=== PATIENT | male | born 1940 | race Two or more races ===

== ENCOUNTER 2017-06-05 19:00 | Emergency (ER) | payer OTHER ==
[~2017-06-05] VITALS: Ht 182.9 cm; Wt 59.0 kg
--- NOTE | 2017-06-05 19:05 | NUR ---
PT A/OX4 BREATHING EFFORTLESSLY ON ROOM AIR, PT YANCY FROM HOME, PER EMS, PT NEIGHBOR CALLED 911 FOR A WELLNESS CHECK, PT DENIES ANY PAIN, PT STATES HE JUST FEELS A LITTLE WEAK AND LIGHT HEADED, PT ON MONITOR, MD MADE AWARE WILL CONTINUE TO MONITOR.
[2017-06-05 19:52] LABS: BASOPHILS % (AUTO) 0.7 % (0.0-2.0); EOSINOPHILS % (AUTO) 0.1 % (0.0-6.0); HEMATOCRIT 35 % (39-51); LYMPHOCYTES # (AUTO) 1.2 /CMM (0.8-4.8); LYMPHOCYTES % (AUTO) 17.2 % (20.0-44.0); MEAN CORPUSCULAR HEMOGLOBIN 30 PG (26.0-33.0); MEAN CORPUSCULAR HGB CONC 34 g/dl (31.0-36.0); MEAN CORPUSCULAR VOLUME 88 fL (80-96); MONOCYTES # (AUTO) 0.6 /CMM (0.1-1.30); MONOCYTES % (AUTO) 8.6 % (2.0-12.0); NEUTROPHILS # (AUTO) 4.9 /CMM (1.8-8.9); NEUTROPHILS % (AUTO) 73.4 % (43.0-81.0); PLATELET COUNT (AUTO) 271 /CMM (150-450); RDW COEFFICIENT OF VARIATION 12.4 (11.5-15.0); RED BLOOD CELL COUNT(AUTO) 3.99 MIL/uL (4.5-6.0); WHITE BLOOD COUNT (AUTO) 6.7 K/uL (4.3-11.0)
[2017-06-05 20:03] LABS: CALCIUM, SERUM 8.7 mg/dL (8.5-10.1); CARBON DIOXIDE 26 mmol/L (21-32); CHLORIDE 103 mmol/L (98-107); CREATININE 1.3 mg/dL (0.6-1.3); GLUCOSE 97 mg/dL (74-106); POTASSIUM 4.3 mmol/L (3.5-5.1); SODIUM SERUM 136 mmol/L (136-145); UREA NITROGEN, BLOOD 42 mg/dL (7-18)
[2017-06-05 20:06] LABS: INR 1.08 (0.85-1.15)
[2017-06-05 20:10] LABS: TROPONIN I 0.035 ng/mL (0.00-0.056)
[2017-06-05 20:14] LABS: ALANINE AMINOTRANSFERASE 32 U/L (12-78); ALBUMIN 3.2 g/dL (3.4-5.0); ALKALINE PHOSPHATASE 65 U/L (46-116); ASPARTATE AMINOTRANSFERASE 87 U/L (15-37); BILIRUBIN,DIRECT 0.1 mg/dL (0.0-0.2); BILIRUBIN,TOTAL 0.5 mg/dL (0.2-1.0); TOTAL PROTEIN, SERUM 7.1 g/dL (6.4-8.2)
[2017-06-05] MEDS ORDERED: IV NS 0.9% 1,000 ML BAG IV ONE (20:30)
--- NOTE | 2017-06-05 20:41 | NUR ---
CALLED [facility] SPOKE WITH [facility]. EXPECTING A CALL BACK FROM A [facility]
--- NOTE | 2017-06-05 21:11 | NUR ---
PT ACCEPTED BY DR LEONARD AT [facility]. # FOR REPORT [phone]. ETA [phone] FOR TRANSPORT.
[2017-06-05 21:13] VITALS: BP 128/62
--- NOTE | 2017-06-05 21:18 | NUR ---
REPORT CALLED TO RADHA COATES
--- NOTE | 2017-06-05 21:47 | NUR ---
REPORT WAS GIVEN TO [employer] ATTENDANT
== END 2017-06-05 22:29 | disposition short-term general hospital (02) ==
LOC: ER 19:03
DX: R55 Syncope and collapse (principal); D64.9 Anemia, unspecified; E86.0 Dehydration; E11.9 Type 2 diabetes mellitus without complications; G20 Parkinson's disease; I10 Essential (primary) hypertension; I70.0 Atherosclerosis of aorta; M81.0 Age-related osteoporosis without current pathological fracture; Z88.0 Allergy status to penicillin; Z90.49 Acquired absence of other specified parts of digestive tract
CPT/HCPCS: 36415; 70450; 71045; 80048; 80076; 84484; 85025; 85730; 93005; 96360; 99285; A4606; Z7610